=== PATIENT | male | born 1960 | race Caucasian/White ===

== ENCOUNTER 2017-10-11 18:09 | Emergency (ER) | payer OTHER ==
[2017-10-11] MEDS ORDERED: HYDROCOD/APAP 5/325 PREPACK#6 BTL TAKEHOME ONE (20:06)
--- NOTE | 2017-10-11 20:06 | EDPHY ---
H & P Stated Complaint: R knee/ankle injury at work Time Seen by Provider: 10/11/17 18:48 HPI/ROS: Chief complaint: Right knee and ankle injury History of present illness: This is a 57-year-old male who presents to the emergency department for a right knee and ankle injury. Patient was at work, he was bending down and twisting on his leg when he felt pop in his knee and twisted his ankle. Since then he has had pain in both regions. It makes it difficult to move. He is having a hard time ambulating. He denies other associated signs or symptoms including no direct trauma. No open wounds. No abnormal coolness or paresthesias in the leg. No other injuries reported. - Personal History Current Tetanus Diphtheria and Acellular Pertussis (TDAP): No - Medical/Surgical History Other PMH: neg - Social History Smoking Status: Current every day smoker - Physical Exam Exam: General: Alert, nontoxic Skin: No open wounds to the right lower extremity. Musculoskeletal: There is an effusion to the right knee. It is tender to palpation. There is pain with flexion and extension. Joint appears grossly stable. There is tenderness over the medial aspect of the ankle. He is moving it well. The rest the right lower extremity is unremarkable. Vascular: DP and PT pulses 2+. Neurologic: Sensation intact throughout the right leg. Constitutional: Initial Vital Signs Temperature (C) 36.7 C 10/11/17 18:11 Heart Rate 63 10/11/17 18:11 Respiratory Rate 16 10/11/17 18:11 Blood Pressure 163/55 H 10/11/17 18:11 O2 Sat (%) 96 10/11/17 18:11 O2 Delivery Mode Room Air Allergies/Adverse Reactions: No Known Allergies Allergy (Unverified 10/11/17 18:14) Home Medications: Medication Instructions Recorded NK [No Known Home Meds] 10/11/17 Medical Decision Making - Diagnostics Imaging Results: Imaging Impressions Ankle X-Ray 10/11/17 19:05 Impression: No acute osseous findings. Knee X-Ray 10/11/17 19:05 Impression: Joint effusion with no definite acute osseous findings. If pain persists and clinical suspicion warrants, consider MRI. Imaging: I viewed and interpreted images myself Procedures: Procedure: Splint placement. A Velcro knee immobilizing splint was applied. After application of the splint I returned and re-examined the patient. The splint was adequately immobilizing the joint and distal to the splint the patient's circulation and sensation was intact. Patient was given crutches ED Course/Re-evaluation: Patient is seen under the supervision of my secondary supervising physician Dr. Donaldo Cat. Patient presents for a right knee and ankle injury. The right lower extremity is neurovascularly intact. Joint effusion is seen on knee x-ray , otherwise films unremarkable. I am concerned for a soft tissue injury. He is placed in a knee immobilizer. Given crutches. He is asked to remain nonweightbearing. Home care is discussed including pain management. He is asked to follow up with worker's compensation for recheck. Return precautions are given. The patient voiced understanding and agreement with plan. The tavern keeper was used to facilitate communication with patient. Differential Diagnosis: Included but not limited to contusion, sprain or strain, meniscal injury, bony injury, unlikely joint dislocation - Data Points Medications Given: Discontinued Medications Hydrocodone Bitart/Acetaminophen ([place] 5/325mg Prepack#6) 1 btl TAKEHOME EDNOW ONE Stop: 10/11/17 20:07 Last Admin: 10/11/17 20:14 Dose: 1 btl Departure - Departure Disposition: Home, Routine, Self-Care Clinical Impression: Knee sprain Qualifiers: Encounter type: initial encounter Involved ligament of knee: unspecified ligament Laterality: right Qualified Code(s): S83.91XA - Sprain of unspecified site of right knee, initial encounter Ankle contusion Qualifiers: Encounter type: initial encounter Laterality: right Qualified Code(s): S90.01XA - Contusion of right ankle, initial encounter Condition: Good Instructions: Knee Sprain (ED) Additional Instructions: Follow-up with a primary care doctor or worker's compensation for recheck In regards to pain control see the following: Use ibuprofen [600] mg [3] times a day for the next 2-3 days for pain In addition You have been prescribed [[place]] for pain. [[place]] contains Tylenol, do not take extra Tylenol/acetaminophen/Apap with it. It is sedating. Ice the injury, 20 min on, 3 times daily for the next 3 days If symptoms worsen or new symptoms develop return to the emergency room for recheck Hacer luis alfredo de seguimiento con un medico de atncion primaria o compensacion laboral para un chequeo de nuevo En lo que respecta al control del dolor, consulte lo siguiente; Use Ibuprofeno [600] mg [3] veces al janett flor los proximos 2 a 3 navas para el dolor Ademas, le recetaron [[place]] para el dolor. [[place]] contiene Tylenol no tome Tylenol / acetaminophen/ Apap adicional con el. Es sedante Aplique hielo a la lesion, 20 minutes, 3 veces al janett flor los proximos 3 navas Si los sintomas empeoran o aparencen nuevos sintomas, regrese a la aleja de emergencias para volver a revisar. Referrals: NONE *PRIMARY CARE P,. [Primary Care Provider] - As per Instructions [facility],. [Clinic] - As per Instructions Print Language: Georgian
[2017-10-11 20:48] VITALS: BP 154/63
== END 2017-10-11 20:46 | disposition home or self-care (01) ==
DX: S83.91XA Sprain of unspecified site of right knee, initial encounter (principal); S90.01XA Contusion of right ankle, initial encounter; F17.200 Nicotine dependence, unspecified, uncomplicated; X50.9XXA Other and unspecified overexertion or strenuous movements or postures, initial encounter; Y99.0 Civilian activity done for income or pay; Y93.89 Activity, other specified
CPT/HCPCS: L1830